=== PATIENT | female | born 1995 | race Caucasian/White ===

== ENCOUNTER 2024-11-25 17:31 | Emergency (ER) | payer MEDICAID ==
[~2024-11-25] VITALS: Ht 165.1 cm; Wt 59.2 kg
[2024-11-25 18:36] VITALS: BP 116/81; PULSE 97; RESP 16; TEMP 98.8; O2SAT 97
--- NOTE | 2024-11-25 18:45 | DVH ---
EXAMINATION: XY L RIB X RAY INDICATION: left side rib pain COMPARISON: None TECHNIQUE: Frontal view of the chest and 5 views of the left ribs history FINDINGS: No focal consolidation, pleural effusion or significant pneumothorax. Normal cardiomediastinal silhou ette. No displaced left rib fracture. IMPRESSION: No acute cardiopulmonary disease. No displaced left rib fracture.
--- NOTE | 2024-11-25 19:04 | ED.PDOC ---
Back pain HPI HPI Comments LEFT SIDED RIB PAIN X4 DAYS NO INJURY WORSE IN MORNING LUNGS CLEAR STATES SHE HAD APPT WITH PRIMARY TODAY BUT PRIMARY NOT IN. DENIES DIFFICULTY BREATHING, SHORTNESS OF BREATH, KNOWN INJURY, FEVER, CHILLS, RECENT TRAVEL OR ILL CONTACTS Chief Complaint: Rib Pain Time Seen by MD: 17:55 Primary Care Provider: NAVYA Reviewed Notes: Nurses Notes, Medications, Allergies Allergies: Coded Allergies: NO KNOWN ALLERGIES (Unverified , 06/05/13) Home Meds Active Scripts Methylprednisolone (Medrol Dosepak) 4 Mg Ross, 4 MG PO UD for 6 Days, #21 TAB UAD Prov:INDIRA ESCALONAK [employer] 11/25/24 Tizanidine Hydrochloride (Tizanidine Hcl) 4 Mg Tab, 4 MG PO HS PRN for 6 Days, #6 TAB Prov:IQRAELIZABETH Thomas [facility] 11/25/24 Mode of Arrival: Ambulatory Past Medical History PAST MEDICAL HISTORY: Anxiety, Seizures Surgical History: Denies all surgeries TAILOR HELPER History: No Pertinent TAILOR HELPER History Family History Family History: Unknown Social History Smoker: Cigarettes Alcohol: Denies ETOH Use Drugs: Denies Drug Use Lives In: Home Constitutional: denies: chills, diaphoresis, fatigue, fever, malaise, sweats, weakness, others EENTM: denies: blurred vision, double vision, ear bleeding, ear discharge, ear drainage, ear pain, ear ringing, eye pain, eye redness, hearing loss, mouth pain, mouth swelling, nasal discharge, nose bleeding, nose congestion, nose pain, photophobia, tearing, throat pain, throat swelling, voice changes, others Respiratory: denies: cough, hemoptysis, orthopnea, SOB at rest, shortness of breath, SOB with excertion, stridor, wheezing, others Cardiovascular: denies: chest pain, dizzy spells, diaphoresis, Dyspnea on exertion, edema, irregular heart beat, left arm pain, lightheadedness, palpitations, PND, syncope, others Gastrointestinal: denies: abdomen distended, abdominal pain, blood streaked bowels, constipated, diarrhea, dysphagia, difficulty swallowing, hematemesis, melena, nausea, poor appetite, poor fluid intake, rectal bleeding, rectal pain, vomiting, others Genitourinary: denies: abnormal vagina bleeding, burning, dyspareunia, dysuria, flank pain, frequency, hematuria, incontinence, pain, , vagina discharge, urgency, others Neurological: denies: dizziness, fainting, headache, left sided numbness, left sided weakness, numbness, paresthesia, pre-existing deficit, right sided numbness, right sided weakness, seizure, speech problems, tingling, tremors, weakness, others Musculoskeletal: reports: others (LEFT-SIDED RIB PAIN); denies: back pain, gout, joint pain, joint swelling, muscle pain, muscle stiffness, neck pain Integumetry: reports: lumps (ON THIGH); denies: bruises, change in color, change in hair/nails, dryness, laceration, lesions, rash, wounds, others Allergic/Immunocompromised: denies: Difficulty Healing, Frequent Infections, Hives, Itching, others Hematologic/Lymphatic: denies: anemia, blood clots, easy bleeding, easy bruising, swollen glands, others Endocrine: denies: excessive hunger, excessive sweating, excessive thirst, excessive urination, flushing, intolerance to cold, intolerance to heat, unexplained weight gain, unexplained weight loss, others Psychiatric: denies: anxiety, bipolar disorder, depression, hopeless, panic disorder, schizophrenia, sleepless, suicidal, others Physical Exam General Appearance: No Apparent Distress, Normal HEENT: Normal ENT Inspection, Pharynx Normal, TMs Normal Neck: Full Range of Motion, Non-Tender Respiratory: Lungs Clear, No Accessory Muscle Use, No Respiratory Distress, Normal Breath Sounds, Other (LEFT SIDE LATERAL RIBCAGE TENDER ON PALPATION NO NOTED CREPITUS OR FLAIL CHEST NO NOTED ABRASIONS LESIONS LACERATIONS OR ECCHYMOSIS NO NOTED EDEMA) Cardiovascular: No Edema, No JVD, No Murmur, No Gallop, Normal Peripheral Pulses, Regular Rate/Rhythm Breast Exam: Deferred Gastrointestinal: No Organomegaly, Non Tender, No Pulsatile Mass, Normal Bowel Sounds, Soft Genitalia: Deferred Pelvic: Deferred Rectal: Deferred Extremities: Normal capillary refill, Normal inspection, Normal range of motion, Non-tender, No pedal edema Musculoskeletal : Apperance: Normal Neurologic: Alert, hspt tutor II-XII nml as Tested, No Motor Deficits, Normal Affect, Normal Mood, No Sensory Deficits Cerebellar Function: Normal Reflexes: Normal Skin: Dry, Normal Color, Warm, Other (TRACE SWELLING OVER LEFT ANTERIOR THIGH NO NOTED ECCHYMOSIS, ERYTHEMA, OR ABRASION. TENDERNESS ON PALPATION) Lymphatic: No Adenopathy Was a procedure done? Was a procedure done?: No Back Pain Differential Dx Differential Diagnosis: Fracture, Musculoskeletal Pain X-Ray, Labs, Meds, VS Vital Signs Date Time Temp Pulse Resp B/P (MAP) Pulse Ox O2 Delivery O2 Flow Rate FiO2 11/25/24 18:36 97 16 97 Room Air 11/25/24 18:36 98.8 97 16 116/81 (93) 97 98.8 11/25/24 17:49 16 97 Room Air* 0 21 11/25/24 17:42 98.8 97 16 116/81 (93) 97 98.8 X-Ray, Labs, Meds, VS Comment RIB X-RAY SHOWS NO ACUTE FINDINGS, FRACTURES, OR OSSEOUS LESIONS OR DISLOCATIONS. COSTOCHONDRITIS. TORADOL 60 MG IM REPORTS IMPROVEMENT PAIN REQUESTING DISCHARGE AT THIS TIME. TRIAL MUSCLE RELAXER AND MEDROL DOSEPAK SCRIPT TO PHARMACY ON FILE. ADVISED TO CONTINUE TO FOLLOW UP WITH HER PCP SCHEDULED REGARDING THE LUMP ON HER LEG IN THE PAIN LUMP APPEARS TO BE LIKELY LIPOMA. TAKE MEDICATIONS PRESCRIBED SIDE EFFECTS DISCUSSED. PATIENT AGREES WITH DISCHARGE PLAN OF CARE INDICATES UNDERSTANDING AND AGREES WITH PLAN Time of 1ST Reevaluation: 19:13 Reevaluation 1ST: Improved Patient Education/Counseling: Diagnosis, Treatment, Prognosis, Need For Follow Up Family Education/Counseling: No Family Present Departure 1 Departure Time of Disposition: 19:08 Impression: Primary Impression: Costochondritis Disposition: 01 HOME / SELF CARE / HOMELESS Condition: Stable e-Prescriptions Methylprednisolone (Medrol Dosepak) 4 Mg Ross 4 MG PO UD for 6 Days, #21 TAB UAD Prov: ELIZABETH ESCALONA 11/25/24 Tizanidine Hydrochloride (Tizanidine Hcl) 4 Mg Tab 4 MG PO HS PRN for 6 Days, #6 TAB Prov: ELIZABETH ESCALONA 11/25/24 Discharged With: Self Critical Care Note Critical Care Time?: No Stability Stability form required: ELIZABETH Chang Nov 25, 2024 19:04
[2024-11-25] MEDS ORDERED: TIZA-142 PO (19:09)
[2024-11-25] MEDS ORDERED: METH4PAK PO (19:09)
[2024-11-25] MEDS: KETOROLAC TROMETH 60MG/2ML VIAL IM ONE (19:19)
== END 2024-11-25 19:23 | disposition home or self-care (01) ==
LOC: ER 17:34
DX: M94.0 Chondrocostal junction syndrome [Tietze] (principal); F17.210 Nicotine dependence, cigarettes, uncomplicated; F41.9 Anxiety disorder, unspecified; R56.9 Unspecified convulsions; Z79.899 Other long term (current) drug therapy
CPT/HCPCS: 71101; 96372; 99283; J1885